=== PATIENT | female | born 1975 | race Caucasian/White ===

== ENCOUNTER 2016-08-18 09:37 | Emergency (ER) | payer OTHER | END 2016-08-18 12:36 | disposition home or self-care (01) | LOC: ER1 09:37 | DX: S93.492A Sprain of other ligament of left ankle, initial encounter (principal); X58.XXXA Exposure to other specified factors, initial encounter | CPT/HCPCS: 73610; 99283 ==

== ENCOUNTER → 2020-05-22 | Outpatient (CLI) | payer OTHER ==
[~2020-05-22] MED LIST: AMOXICILLIN875 MG PO; IBUPROFEN600 MG PO
== END ==
LOC: EMI 10:53
DX: M54.5 Low back pain (principal); M51.26 Other intervertebral disc displacement, lumbar region; M48.062 Spinal stenosis, lumbar region with neurogenic claudication; M25.78 Osteophyte, vertebrae; M51.27 Other intervertebral disc displacement, lumbosacral region
CPT/HCPCS: 72100; 72148

== ENCOUNTER → 2020-05-22 | Outpatient (CLI) | payer OTHER | LOC: RAD 12:09 | DX: M54.5 Low back pain (principal); M51.36 Other intervertebral disc degeneration, lumbar region | CPT/HCPCS: 72100 ==

== ENCOUNTER → 2021-05-23 | Outpatient (CLI) | payer OTHER | LOC: RAD 10:55 | DX: R07.81 Pleurodynia (principal) | CPT/HCPCS: 71046 ==